=== PATIENT | female | born 1975 | race American Indian/Alaskan Native ===

== ENCOUNTER 2017-08-13 10:02 | Outpatient (CLI) | payer OTHER ==
[2017-08-13] MEDS ORDERED: LASIX ONE (11:01)
[2017-08-13] MEDS ORDERED: LASIX IV ONE (11:02)
--- NOTE | 2017-08-14 08:57 | Nuclear Medicine Report ---
Renal scan with Lasix: Following intravenous injection of radionuclide flow imaging demonstrates a slightly greater degree of activity to the right kidney than the left however both kidneys appear to have activity at approximately the same time. The flow curves indicate a slightly greater amount of activity supplying the right kidney compared to the left but the flow curves are relatively parallel. The excretion curves indicate more activity in the right kidney than the left. Both kidneys demonstrate excretion of activity at approximately 11 minutes. Following injection of 20 mg of IV Lasix there is enhancement and excretion from both kidneys. The static images demonstrate mild retention of activity apparently in slightly dilated calyces of the left kidney compared to the right. The overall size of the left kidney also appears somewhat approximately 25% smaller than the right. The split function studies indicate that the left kidney supplies 40.4% and the right kidney 59.6% of the total activity. Impression: The findings indicate a somewhat smaller left kidney with an asymmetrically diminished degree of function and mild caliectasis but no evidence of obstruction.
== END 2017-08-13 10:03 | disposition home or self-care (01) ==
LOC: NM 10:02
PROVIDERS: ATTEND Internal Medicine Nephrology
DX: N28.89 Other specified disorders of kidney and ureter (principal)
CPT/HCPCS: 78708; A9562; J1940